=== PATIENT | male | born 1990 | race Caucasian/White ===

== ENCOUNTER 2017-04-26 08:12 | Emergency (ER) | payer SELFPAY ==
[2017-04-26 08:24] VITALS: BP 139/83; TEMP 97.4; O2SAT 99
--- NOTE | 2017-04-26 08:28 | ED.PDOC ---
History of Present Illness - General Chief Complaint: General Stated Complaint: painful clusters on penis Time Seen by Provider: 04/26/17 08:25 Source: patient Exam Limitations: no limitations - History of Present Illness Initial Comments: the patient is a 27 yearold male presenting to the emergency room secondary to concern over periodic penile lesions.the patient does not currently have any active lesions. A few months ago he had a small blister to the underside of his penis. A month or 2 later he had a recurrence with more blisters in the area. It were painful. No penile discharge. He is in a relationship. No fever. No lesions elsewhere. No altered mental status. The patient has recently been any trauma of some form and does have black eyes bilaterally as well as a laceration to thethird digit of his right hand that is healing. Timing/Duration: intermittent Severity: mild Improving Factors: nothing Worsening Factors: nothing Associated Symptoms: denies symptoms Allergies/Adverse Reactions: Allergies NO KNOWN ALLERGY Allergy (Verified 01/24/15 08:26) Home Medications: Ambulatory Orders Ondansetron [Zofran Odt] 4 mg PO Q6-8H PRN #7 tab 01/24/15 Acyclovir [Zovirax] 400 mg PO TID #15 tab 04/26/17 Review of Systems - Review of Systems Constitutional: States: no symptoms reported EENTM: States: see HPI Respiratory: States: no symptoms reported Cardiology: States: no symptoms reported Gastrointestinal/Abdominal: States: no symptoms reported Genitourinary: States: see HPI Musculoskeletal: States: no symptoms reported Skin: States: see HPI Neurological: States: no symptoms reported Endocrine: States: no symptoms reported Hematologic/Lymphatic: States: no symptoms reported All other Systems: No Change from Baseline Past Medical History (General) - Patient Medical History Hx Seizures: No Hx Stroke: No Hx Dementia: No Hx Asthma: No Hx of COPD: No Hx Cardiac Disorders: No Hx Congestive Heart Failure: No Hx Pacemaker: No Hx Hypertension: No Hx Thyroid Disease: No Hx Diabetes: No Hx Gastroesophageal Reflux: No Hx Renal Disease: No Hx Cancer: No Hx of HIV: No Hx Hepatitis C: No Hx MRSA: No Surgical History: no surgical history - Vaccination History Hx Tetanus, Diphtheria Vaccination: Yes Hx Influenza Vaccination: No Hx Pneumococcal Vaccination: No Immunizations Up to Date: No - Social History Hx Tobacco Use: Yes Hx Chewing Tobacco Use: No Hx Alcohol Use: Yes Hx Substance Use: Yes Hx Substance Use Treatment: No Hx Depression: No Feels Threatened In Home Enviroment: No Feels Threatened In a Relationship: No Hx Physical Abuse: No Hx Emotional Abuse: No Hx Suspected Abuse: No - Female History Patient is a Female of Child Bearing Age (10 -59 yrs old): No Patient : No Family Medical History - Family History Mother Family History: Unknown Living Status: Still Living Hx Family Asthma: No Physical Exam - Physical Exam General Appearance: Alert, Comfortable, No apparent distress Eye Exam: bilateral normal Ears, Nose, Throat: hearing grossly normal, normal pharynx, other - black eyes bilaterally. Neck: full range of motion Respiratory: no respiratory distress, no accessory muscle use Cardiovascular/Chest: normal peripheral pulses, no edema Peripheral Pulses: radial,right: 2+, radial,left: 2+ Rectal Exam: other - exam of the penis shows whitened flesh of previous healing lesion. Back Exam: no vertebral tenderness Extremity: normal range of motion, no pedal edema, normal capillary refill Neurologic: alert, normal mood/affect, oriented x 3 Skin Exam: normal color - with the exception of the black eyes. He also has a laceration over the knuckle of the third digit. This is healing by secondary intention. Progress - Progress Progress: 04/26/17 08:30 the patient is a 27-year-old male presenting due to concern over penile lesion. There is no active lesion currently. By history, this is most consistent with herpes virus. The patient will be written for a round of acyclovir in case he has another breakout. If he does have another breakout he does need to be seen by his primary care at the time for confirmation of the diagnosis. Additionally I would recommend full panel of STD screening with the public health department for this patient and his partner. ER warnings were given. Departure - Departure Clinical Impression: Herpes genitalia Qualifiers: Herpes simplex infection site: penis Qualified Code(s): A60.01 - Herpesviral infection of penis Disposition: Discharge to Home or Self Care Condition: Fair Departure Forms: ED Discharge - Pt. Copy, Patient Portal Self Enrollment Instructions: DI for Genital Herpes Diet: regular diet Activity: increase activity as tolerated Prescriptions: Acyclovir [Zovirax] 400 mg PO TID #15 tab Home Medications: Ambulatory Orders Ondansetron [Zofran Odt] 4 mg PO Q6-8H PRN #7 tab 01/24/15 Acyclovir [Zovirax] 400 mg PO TID #15 tab 04/26/17 Additional Instructions: the patient is a 27-year-old male presenting due to concern over penile lesion. There is no active lesion currently. By history, this is most consistent with herpes virus. The patient will be written for a round of acyclovir in case he has another breakout. If he does have another breakout he does need to be seen by his primary care at the time for confirmation of the diagnosis. Additionally I would recommend full panel of STD screening with the public health department for this patient and his partner. ER warnings were given.
== END 2017-04-26 08:43 | disposition home or self-care (01) ==
LOC: ER 08:12
DX: A60.01 Herpesviral infection of penis (principal); Z87.891 Personal history of nicotine dependence

== ENCOUNTER → 2019-08-01 | Emergency (ER) | payer SELFPAY | END | disposition left against medical advice (07) ==